=== PATIENT | male | born 1950 | race Caucasian/White ===

== ENCOUNTER 2021-09-15 12:49 | Emergency (ER) | payer OTHER ==
[~2021-09-15] VITALS: Ht 172.7 cm; Wt 76.0 kg
[2021-09-15 12:52] VITALS: BP 175/75
[2021-09-15] MEDS ORDERED: TETANUS, DIPHTHERIA, PERTUSSIS VAC/PF 0.5ML (>10YR OLD) IM ONE (13:15)
[2021-09-15] MEDS ORDERED: ACETAMINOPHEN 325MG TABLET PO ONE (13:15)
[2021-09-15] MEDS ORDERED: BACITRACIN ZINC OINT UDPKT TOP ONE (13:15)
[2021-09-15] MEDS ORDERED: TOPUD MT (13:43)
== END 2021-09-15 14:26 | disposition home or self-care (01) ==
LOC: ER 12:49
DX: S80.212A Abrasion, left knee, initial encounter (principal); V49.49XA Driver injured in collision with other motor vehicles in traffic accident, initial encounter; Y93.89 Activity, other specified; Y92.89 Other specified places as the place of occurrence of the external cause; Y99.8 Other external cause status
CPT/HCPCS: 73562; 90471; 90715; 99283